=== PATIENT | male | born 1995 | race Caucasian/White ===

== ENCOUNTER 2022-01-11 19:26 | Emergency (ER) | payer MEDICAID, OTHER ==
[~2022-01-11] VITALS: Ht 170.2 cm; Wt 54.4 kg
--- NOTE | 2022-01-11 20:05 | NUR ---
Dr. Mcgee at bedside for MSE.
[2022-01-11 20:12] VITALS: BP 115/73
--- NOTE | 2022-01-11 20:12 | NUR ---
Patient discharged to home in stable condition. Written and verbal after care instructions given. Patient verbalizes understanding of instructions. Stressed follow up or return to ER for worsening s/s.
== END 2022-01-11 20:12 | disposition home or self-care (01) ==
LOC: ER 19:26
DX: S51.819D Laceration without foreign body of unspecified forearm, subsequent encounter (principal); W25.XXXD Contact with sharp glass, subsequent encounter; F17.210 Nicotine dependence, cigarettes, uncomplicated
CPT/HCPCS: A4663